=== PATIENT | male | born 1955 | race African-American/Black ===

== ENCOUNTER 2025-01-02 13:02 | Outpatient (AMB) | payer MEDICARE, MEDICAID, SELFPAY ==
--- NOTE | 2025-01-02 13:10 | MHC.OFFVIS ---
Intake Visit Reasons: N/P Left Wrist Ganglion Cyst Intake Note: Ted is a 69 year old right hand dominant male who presents today as New Patient for evaluation of a Left Wrist Ganglion Cyst. Patient reports it has been present for over a year. He denies any previous treatments for it. He is currently taking Tramadol for other health problems which helps his pain. Patient referred by the MD for possible removal. Allergies No Known Allergies Allergy (Verified 01/02/25 13:13) HPI HPI N/P Left Wrist Ganglion Cyst: Details: Ted is a 69 year old right hand dominant male who presents today as New Patient for evaluation of a Left Wrist Ganglion Cyst. Patient reports it has been present for over a year. He denies any previous treatments for it. He is currently taking Tramadol for other health problems which helps his pain. Patient referred by the MD for possible removal. [facility] Surgical History (Updated 01/02/25 @ 13:16 by NARGIS Rivera) History of knee surgery Social History (Updated 01/02/25 @ 13:14 by NARGIS Rivera) Alcohol intake: current Alcohol intake frequency: a few times a week Patient Tobacco Use Status: Current someday Tobacco user service: Yes Current occupational status: retired Current occupation: rt handed Review of Systems Const All systems reviewed & are unremarkable except as noted in HPI and below Physical Exam Extrem Other: Patient is alert, oriented, and in no acute distress. Neuro: Normal sensation of the tips of all digits of the left hand at this time Vascular: Cap refill brisk Pain: mild tenderness to palpation about mass on volar aspect of the left wrist no pain with range of motion of the left hand ROM: patient is able to make a closed fist and extend all digits of the left hand fully and without difficulty Skin: No lacerations or abrasions. General: there is an approximately 2 cm x 2 cm mass noted of the volar aspect of the patient's left radial wrist No ecchymosis, erythema, or evidence of infection. Psych: Appears grossly normal Affect normal Attitude cooperative Assessment & Plan Assessment & Plan (1) Ganglion cyst of volar aspect of left wrist: Code(s): M67.432 - Ganglion, left wrist Category: Medical Plan 1. left volar wrist ganglion I educated the patient about the condition. I discussed both operative and nonoperative treatment options. The patient would like to proceed with surgery. The risks and benefits of operative treatment were discussed with the patient and the patient wishes to proceed with surgery. These risks include, but are not limited to, risk of damage to blood vessels, nerves, tendons, infection, recurrence, incomplete relief of preoperative symptoms, persistent pain, possible need for further surgery, and the risks associated with regional blocks and/or anesthesia. Plan is to take the patient to the operating room at some point in the next few weeks for the following procedures: 1. Left volar wrist ganglion excision under general anesthesia All of the preoperative paperwork including the consent was discussed today. All of the patient's questions were answered in the clinic today. The patient understands that they will be in contact with our surgical elastic knitter to discuss scheduling their procedure. Patient denies diabetes, blood thinners, asthma, heart issues, lung issues, kidney issues, or current smoking. Coding Level of Care Code New Pt Level 4 (62733) Diagnoses Ganglion cyst of volar aspect of left wrist M67.432
== END 2025-01-02 13:52 | disposition home or self-care (01) ==
PROVIDERS: PCP Internal Medicine
DX: M67.432 Ganglion, left wrist (principal)
CPT/HCPCS: 99204

== ENCOUNTER → 2025-01-02 13:02 | Outpatient (BNVA) | payer MEDICARE, SELFPAY | PROVIDERS: PCP Internal Medicine | DX: M67.432 Ganglion, left wrist (principal) | CPT/HCPCS: 99202 ==

== ENCOUNTER 2025-01-26 09:20 | Day surgery (SDC) | payer OTHER, SELFPAY ==
[2025-01-18 12:42] VITALS: BP 147/87; PULSE 77; RESP 16; O2SAT 99; BMI 32.4
[2025-01-26] VITALS (7 sets, daily range): BP systolic 106–129; BP diastolic 61–84; PULSE 60–108; RESP 15; TEMP 36.1–36.8; O2SAT 98
[2025-01-26] MEDS: Lactated Ringers 1,000 ML 100 ML IVCONT (10:00)
--- NOTE | 2025-01-26 11:35 | HO.ANESPROP2 ---
Documented by User: Cynthia Aguilar NP 01/25/25 09:30 HPI - Anesthesia Eval Consult details Narrative: 69 yr old male for left Excision Ganglion scheduled for 01/26/25, seen in PAT 01/18/25 No recent illness No CP/SOB with bike riding daily all over [place]. [place] ?Chronic bronchitis: no recent symptoms. Rare use of albuterol, does not use daily inhaler; needs inhaler when smoking a blunt . Marijuana use: we discussed not smoking for several days prior to surgery. [facility] Active Problems Active Problems: All Active Problems (Updated 01/17/25 @ 14:24 by Keely Flores RN) Ganglion cyst of volar aspect of left wrist (Acute) Past Medical History Medical History (Updated 01/17/25 @ 14:24 by Keely Flores RN) Osteoarthritis Bronchitis Taeniasis, unspecified Obesity Male erectile dysfunction, unspecified Nicotine dependence Homelessness Back pain Family History Family history of problems with anesthesia: No Surgical History Surgical History (Updated 01/18/25 @ 12:38 by Keely Flores RN) Hx of left knee surgery (~1998) History of knee surgery History of Problems with Anesthesia: No Social History Social History (Updated 01/02/25 @ 13:14 by NARGIS Rivera) Are you a primary rn coronary care unit to a significant other at home: No Do you presently have visiting nurse or other home services: No Alcohol intake: current Alcohol intake frequency: a few times a month Patient Tobacco Use Status: Former Tobacco user Use of substances other than those prescribed or required for medical reasons: Yes Substance Use Frequency: Occasionally Have you been hit, kicked, punched, or otherwise hurt by someone within the past year? If so, by whom?: No Are you DNR?: No Advance Directives: No Advance Directives Information Provided: Yes Advance Directives on File: No Poor oral hygiene: Yes service: Yes Current occupational status: retired Current occupation: rt handed Meds Allergies Allergy/AdvReac Type Severity Reaction Status Date / Time No Known Allergies Allergy Verified 01/02/25 13:13 Home Medications ?Medication ?Instructions ?Recorded ?Confirmed ?Last Taken ?Type albuterol sulfate 90 mcg/actuation 2 puff inhalation Q6H PRN 01/17/25 01/17/25 Unknown History aerosol inhaler Shortness Of Breath Or Wheezing clotrimazole 1 % topical cream 1 appl topical BID PRN Skin 01/17/25 01/18/25 Unknown History Irritation ipratropium 20 mcg-albuterol 100 1 puff inhalation QID PRN 01/17/25 01/18/25 Unknown History mcg/actuation mist for inhalation Shortness Of Breath Or Wheezing sildenafil 100 mg tablet 100 mg PO DAILY PRN Sexual Activity 01/17/25 01/17/25 Unknown History tramadol 50 mg tablet 50 mg PO TID PRN Pain 01/17/25 01/18/25 Unknown History Exam Height,Weight and Vital Signs: Height 5 ft 11 in Weight 105.233 kg Last Vital Signs Pulse 77 01/18/25 12:42 Resp 16 01/18/25 12:42 BP 147/87 H 01/18/25 12:42 Pulse Ox 99 01/18/25 12:42 O2 Del Method Room Air 01/18/25 12:42 Airway Mallampati Class: III TM Dist: >3cm Neck ROM: Full Denture: Upper and Lower Heart: RRR Lungs: CTAB Assessment and Plan Final Anesthetic Review Family History of Problems with Anesthesia: No History of Problems with Anesthesia: No Documented by User: Rajni Hargrove DO 01/26/25 11:36 [facility] Past Medical History Medical History (Updated 01/17/25 @ 14:24 by Keely Flores RN) Osteoarthritis Bronchitis Taeniasis, unspecified Obesity Male erectile dysfunction, unspecified Nicotine dependence Homelessness Back pain Family History Family history of problems with anesthesia: No Surgical History Surgical History (Updated 01/18/25 @ 12:38 by Keely Flores RN) Hx of left knee surgery (~1998) History of knee surgery History of Problems with Anesthesia: No Social History Social History (Updated 01/02/25 @ 13:14 by NARGIS Rivera) Are you a primary rn coronary care unit to a significant other at home: No Do you presently have visiting nurse or other home services: No Alcohol intake: current Alcohol intake frequency: a few times a month Patient Tobacco Use Status: Former Tobacco user Use of substances other than those prescribed or required for medical reasons: Yes Substance Use Frequency: Occasionally Have you been hit, kicked, punched, or otherwise hurt by someone within the past year? If so, by whom?: No Are you DNR?: No Advance Directives: No Advance Directives Information Provided: Yes Advance Directives on File: No Poor oral hygiene: Yes service: Yes Current occupational status: retired Current occupation: rt handed Meds Allergies Allergy/AdvReac Type Severity Reaction Status Date / Time No Known Allergies Allergy Verified 01/02/25 13:13 Home Medications ?Medication ?Instructions ?Recorded ?Confirmed ?Last Taken ?Type albuterol sulfate 90 mcg/actuation 2 puff inhalation Q6H PRN 01/17/25 01/17/25 Unknown History aerosol inhaler Shortness Of Breath Or Wheezing clotrimazole 1 % topical cream 1 appl topical BID PRN Skin 01/17/25 01/18/25 Unknown History Irritation ipratropium 20 mcg-albuterol 100 1 puff inhalation QID PRN 01/17/25 01/18/25 Unknown History mcg/actuation mist for inhalation Shortness Of Breath Or Wheezing sildenafil 100 mg tablet 100 mg PO DAILY PRN Sexual Activity 01/17/25 01/17/25 Unknown History tramadol 50 mg tablet 50 mg PO TID PRN Pain 01/17/25 01/18/25 Unknown History Exam Exam Date and Time: 01/26/25 1135 Height,Weight and Vital Signs: Vital Signs Pulse Rate 77 01/18/25 12:42 Respiratory Rate 16 01/18/25 12:42 Blood Pressure 147/87 H 01/18/25 12:42 Pulse Oximetry 99 01/18/25 12:42 Oxygen Delivery Method Room Air 01/18/25 12:42 Temperature 97 F 01/26/25 09:48 Pulse Rate 60 01/26/25 09:48 Respiratory Rate 15 01/26/25 09:48 Blood Pressure 118/78 01/26/25 09:48 Pulse Oximetry 98 01/26/25 09:48 Oxygen Delivery Method Room Air 01/26/25 09:48 Height 5 ft 11 in Weight 105.233 kg Last Vital Signs Pulse 77 01/18/25 12:42 Resp 16 01/18/25 12:42 BP 147/87 H 01/18/25 12:42 Pulse Ox 99 01/18/25 12:42 O2 Del Method Room Air 01/18/25 12:42 Airway Mallampati Class: II TM Dist: >3cm Neck ROM: Full Denture: Upper and Lower Heart: S1S2 Assessment and Plan Assessment Anesthesia Assessment: Anesthesia Plan Discussed and Chart Reviewed Final Anesthetic Review Family History of Problems with Anesthesia: No History of Problems with Anesthesia: No NPO: Yes ASA Class: II Final Preanesthetic Review: No Changes in Pt Med Stat, Meds/Allgs Chart Reviewed, Consent Obtained/Reviewed and Anes Risks/Benef Reviewed Patient Risk: Low Procedure Risk: Low Anesthetic Plan Anesthetic Plan: GA and Agree w/ Assess. and Plan Disposition: Standard PACU
--- NOTE | 2025-01-26 11:52 | MHC.SHP ---
Pre-Procedural Eval Section A - 24 Hr Update-Section A only Date of Service: 01/26/25 The patient is an INPATIENT: No Changes since office visit: No Cold of Flu in the past 2 weeks, No New Medical Problems, No Changes in Medication and No Patient answered all questions The patient has been examined within 24 hours of the surgical procedure. The History & Physical has been completed within 30 days and I have reviewed it.: Yes Section B - Complete if H&P > 30 days Chief Complaint: Ganglion, left wrist Allergies: Allergies Allergy/AdvReac Type Severity Reaction Status Date / Time No Known Allergies Allergy Verified 01/02/25 13:13 Plan Diagnosis/Plan: Unchanged I have reviewed the history and physical and performed a pertinent physical examination on my patient. No changes have occurred unless specified. Time Spent With Patient Time: Total time managing care of this patient today ____ minutes.
--- NOTE | 2025-01-26 11:52 | W.PM.OPN ---
Operative Note Operative Note Date of Service: 01/26/25 Narrative: Operative Note Narrative: Preop diagnosis: 1. Left Volar wrist ganglion Postop diagnosis: Same Procedure: 1. Left Volar wrist ganglion excision Surgeon: Riya Conn MD Studio Camera Operator: None Anesthesia: General Anesthesia Findings: A large volar wrist ganglion measuring proximally 2 cm in diameter filled with clear viscous fluid consistent with a ganglion. Implants: None Tourniquet time: 23 minutes EBL: 5.0 ml Specimen: Volar wrist ganglion Drains: None Complications: None Disposition: Brought to the recovery room in stable condition Plan: Follow-up in 10-14 days for wound check, suture removal and to check pathology Indications: The patient is 69 years old with a large left volar wrist ganglion . The risks and benefits of operative treatment, including but not limited to risk of damage to blood vessels, nerves, tendons, infection, recurrence, persistent pain or numbness, incomplete resolution of preoperative symptoms, or need for further surgery were discussed with the patient and they wished to proceed with surgery. Procedure: Once consent was obtained patient was brought back to the operating suite and placed in the operating table in a supine position. . Perioperative antibiotics and anesthesia was administered by the anesthesia team. A tourniquet was applied to the proximal aspect of the left upper extremity and the limb was prepped and draped in a standard surgical fashion. The limb was elevated exsanguinated with Esmarch bandage and the tourniquet inflated to 250 mm of mercury for a total tourniquet time of 23 minutes. A 4 cm a longitudinally oriented lazy-S incision was made centered over the patient's left volar wrist ganglion. The incision was made through the skin the subcutaneous tissues using a 15. Blade. Careful dissection was then made down to the level of the volar wrist ganglion using tenotomy scissors. The ganglion measured approximately 2 cm in diameter. The ganglion was carefully dissected free from the radial artery and several of the small vascular branches using tenotomy and iris scissors. Bipolar electrocautery was also utilized to help with hemostasis. The cyst was filled with clear viscous fluid consistent with a ganglion. The cyst was carefully excised from the patient and placed on the back table to be sent for histopathology. We did identify the stalk and cauterize the stalk with bipolar electrocautery to help decrease the risk of recurrence. At this point the tourniquet was deflated and hemostasis obtained with a brief period of local pressure and bipolar electrocautery. The wound was copiously irrigated with normal saline. The skin edges were reapproximated with 5-0 nylon suture. The wound was infiltrated with some 1% lidocaine with epinephrine for postop pain control and a sterile dressing was applied. The patient appears to have tolerated the procedure well and with no complications. All digits were well vascularized conclusion of the case.
== END 2025-01-26 14:30 | disposition home or self-care (01) ==
PROVIDERS: PCP Internal Medicine; Visit Provider Orthopaedic Surgery
PROC: (CPT 25111; principal; 2025-01-26 11:40)
DX: M67.432 Ganglion, left wrist (principal); J40 Bronchitis, not specified as acute or chronic; F12.90 Cannabis use, unspecified, uncomplicated; B68.9 Taeniasis, unspecified; N52.9 Male erectile dysfunction, unspecified; Z59.00 Homelessness unspecified; F17.210 Nicotine dependence, cigarettes, uncomplicated; Z98.890 Other specified postprocedural states; Z79.899 Other long term (current) drug therapy
CPT/HCPCS: 25111; 88304; J0131; J0690; J1100; J2004; J2250; J2371; J2405; J2704; J2795; J3010

== ENCOUNTER → 2025-01-26 09:20 | Outpatient (BNV) | payer OTHER, SELFPAY | PROVIDERS: PCP Internal Medicine; Visit Provider Orthopaedic Surgery | DX: M67.432 Ganglion, left wrist (principal) | CPT/HCPCS: 25111 ==

== ENCOUNTER 2025-02-08 14:42 | Outpatient (AMB) | payer MEDICARE, MEDICAID, SELFPAY ==
--- NOTE | 2025-02-08 15:19 | MHC.OFFVIS ---
Intake Visit Reasons: PO LT volar wrist ganglion exc 01/26/25 AR Intake Note: Ted is a 69 year old right hand dominant female who presents today in office for a post operative visit status post a left volar wrist ganglion excision, DOS: 01/26/[address] Riya Conn. Patient states no numbness or tingling to report at this time. Allergies No Known Allergies Allergy (Verified 02/08/25 15:24) HPI HPI PO LT volar wrist ganglion exc 01/26/25 AR: Details: Ted is a 69 year old right hand dominant female who presents today in office for a post operative visit status post a left volar wrist ganglion excision, DOS: 01/26/[address] Riya Conn. Patient states no numbness or tingling to report at this time. Denies any pain, redness, swelling, discharge from incision site. Patient states he is very satisfied with the course of his recovery. No other acute complaints or concerns at this time. [facility] Medical History (Updated 01/17/25 @ 14:24 by Keely Flores RN) Osteoarthritis Bronchitis Taeniasis, unspecified Obesity Male erectile dysfunction, unspecified Nicotine dependence Homelessness Back pain Surgical History (Updated 01/18/25 @ 12:38 by Keely Flores RN) Hx of left knee surgery (~1998) History of knee surgery Social History (Updated 01/02/25 @ 13:14 by NARGIS Rivera) Are you a primary prompt care rn to a significant other at home: No Do you presently have visiting nurse or other home services: No Alcohol intake: current Alcohol intake frequency: a few times a month Comment: counts correct Patient Tobacco Use Status: Former Tobacco user service: Yes Current occupational status: retired Current occupation: rt handed Review of Systems Const All systems reviewed & are unremarkable except as noted in HPI and below Physical Exam Extrem Other: Patient is alert, oriented, and in no acute distress. Neuro: Normal sensation of the tips of all digits of the left hand at this time Vascular: Cap refill brisk Pain: No tenderness to palpation about the incision site on volar left wrist no pain with range of motion of the left hand ROM: patient is able to make a closed fist and extend all digits of the left hand fully and without difficulty Skin: Well approximated and well healing incision site on volar left wrist No evidence of cyst recurrence at this time No lacerations or abrasions. General: No ecchymosis, erythema, or evidence of infection. Psych: Appears grossly normal Affect normal Attitude cooperative Assessment & Plan Assessment & Plan (1) Ganglion cyst of volar aspect of left wrist: Code(s): M67.432 - Ganglion, left wrist Category: Medical Plan 1. Status post left volar wrist ganglion excision DOS 01/26/2025 Patient appears to be recovering well postoperatively Patient is educated about the typical recovery course No under water times one-week, 2 lb weight limit x2 weeks Patient appears to be recovering very well, and requires no further acute follow-up with us postoperatively Patient is educated and worrisome signs and symptoms, and should call us if they experience any of these, including but not limited to redness, swelling, increased pain, and discharge Patient understands this and is amenable to this plan Follow-up as needed with any acute concerns Coding Level of Care Code Global (40141) Diagnoses Ganglion cyst of volar aspect of left wrist M67.432
== END 2025-02-08 15:41 | disposition home or self-care (01) ==
LOC: HO.HOS 14:42
PROVIDERS: PCP Internal Medicine
DX: M67.432 Ganglion, left wrist (principal)
CPT/HCPCS: 99024

== ENCOUNTER → 2025-02-08 14:42 | Outpatient (BNVA) | payer MEDICARE, SELFPAY | PROVIDERS: PCP Internal Medicine | DX: M67.432 Ganglion, left wrist (principal); Z98.890 Other specified postprocedural states | CPT/HCPCS: 99212 ==